=== PATIENT | female | born 1960 | race Caucasian/White ===

== ENCOUNTER → 2021-09-13 | Outpatient (CLI) | payer OTHER ==
[~2021-09-13] MED LIST: ASPIRIN 325MG325 MG PO; ECOTRIN81 MG PO; FISH OIL 1,0001 EACH PO; GABAPENTIN300 MG PO; GAVILAX17 GM PO; LOSARTAN POTASS50 MG PO; ONDANSETRON HCL8 MG PO; PERCOCET 5-3251 EACH PO; PERCOCET 7.5-31 EACH PO; PRAVASTATIN SOD80 MG PO; PROAIR HFA8.5 GM INH; PROTONIX40 MG PO; ROPINIROLE HCL0.5 MG PO; TIROSINT50 MCG PO; TYLENOL 500 MG500 MG PO; VITAMIN D21250 MCG PO; VITAMIN D3125 MCG PO; VOLTAREN ARTHRI20 GM TP
== END ==
LOC: HEART CORB 11:15
DX: I73.9 Peripheral vascular disease, unspecified (principal); M79.606 Pain in leg, unspecified
CPT/HCPCS: 93306